=== PATIENT | female | born 2000 | race Caucasian/White ===

== ENCOUNTER 2024-08-19 13:35 | Emergency (ER) | payer BC, SELFPAY ==
[2024-08-19 13:39] VITALS: BP 160/110
[2024-08-19 14:02] LABS: % Basophils 0.9 % (0-2); % Eosinophils 0.7 % (0-6); % Immature Granulocytes 2.6 % (0-0.5); % Lymphocytes 28.5 % (20.5-51.1); % Monocytes 13.3 % (1.7-9.3); Absolute Basophils 0.1 10^3/uL (0-0.2); Absolute Eosinophils 0.1 10^3/uL (0-0.7); Absolute Immature Granulocytes 0.2 10^3/uL (0-0.05); Absolute Lymphocytes 2.6 10^3/uL (1.2-3.4); Absolute Monocytes 1.2 10^3/uL (0.1-0.6); Absolute Neutrophils 4.9 10^3/uL (1.4-6.5); Hematocrit 45.6 % (37.0-47.0); Hemoglobin 15.7 g/dL (12.0-16.0); Mean Corp Hgb Conc. 34.4 g/dL (33.0-37.0); Mean Corpuscular Hgb 28.2 pg (27.0-31.0); Mean Platelet Volume 8.4 fL (7.4-10.4); Nucleated Red Blood Cells % 0 %; Platelet Count 282 10^3/uL (130-400); Red Blood Cell Count 5.56 10^6/uL (4.20-5.40); Red Cell Dist. Width 12.7 % (11.5-14.5); White Blood Cell Count 9.1 10^3/uL (4.8-10.8)
[2024-08-19 14:17] LABS: ALT (SGPT) 65 U/L (0-35); AST (SGOT) 66 U/L (14-36); Albumin 4.7 g/dl (3.5-5.0); Alkaline Phosphatase 42 U/L (38-126); Blood Urea Nitrogen 12 mg/dl (7-17); Calcium 9.6 mg/dl (8.4-10.2); Carbon Dioxide 30 mmol/L (22-30); Chloride 98 mmol/L (98-107); Glucose 123 mg/dl (70-99); HCG, Serum Qualitative Screen Negative; Potassium 4.6 mmol/L (3.5-5.1); Sodium 141 mmol/L (135-145); Total Bilirubin 0.9 mg/dl (0.2-1.3); Total Protein 7.6 g/dl (6.3-8.2); eGFR > 60.00
[2024-08-19 16:01] VITALS: BP 138/96
[2024-08-19 16:03] VITALS: BMI 21.8
--- NOTE | 2024-08-19 16:05 | ED.GENMED ---
History of Present Illness
<Day Cabral PA-C - Last Filed: 08/19/24 18:45>
General
Chief Complaint: Heart Rate Problem
Source: patient
Exam Limitations: none
Time Seen by Provider: 08/19/24 15:53
Nursing documentation reviewed up to this point in time: agreed with
History of Present Illness
History of Present Illness:
23-year-old female presents emergency department today with concerns of fast heart rate. Patient states that this has been going on for the past few hours. Patient reports that she has been having sinus pressure, congestion, as well as a frontal
headache on and off for the past 2 weeks. Patient reports that she was started on a 10-day course of prednisone, she is also had Sudafed and [id number] cough and cold medicine. She reports that she feels like her symptoms were not improving
and so [facility] and they noted her heart rate to be in the 120s and so they sent her to the emergency department for further evaluation. Patient states that she can feel her heart racing at times but denies
palpitations, denies any chest pain or shortness of breath. Patient denies any sore throat, any trouble swallowing. Patient denies any ear pain, dizziness, lightheadedness, syncopal episodes. Patient denies any fatigue, nausea, vomiting,
abdominal pain, fevers or chills. Patient has no chronic medical conditions.
Review of Systems
<Day Cabral PA-C - Last Filed: 08/19/24 18:45>
Review of Systems
All Other Systems: ROS reviewed and negative except as documented in HPI and ROS
Phy Exam
<Day Cabral PA-C - Last Filed: 08/19/24 18:45>
Physical Exam
Physical Exam:
General: Patient is well appearing and in no acute distress; non-toxic
Skin: Warm and dry, no rashes or lesions
Head: Normocephalic, atraumatic
Eyes: Sclera non-icteric. EOMs intact. PERRLA.
Mouth: No intraoral lesions, no pharyngeal erythema, no tonsillar exudates
Cardiac: Regular rate and rhythm, no murmurs
Peripheral Vascular: No lower extremity swelling or edema
Pulm: Normal respiratory effort, no wheezes, rales, rhonchi
Abdomen: No abdominal tenderness to palpation, no organomegaly
Neuro: CN II-XII intact, no focal neurologic deficits.
Psychiatric: Appropriate mood and affect.
Course
<Day Cabral PA-C - Last Filed: 08/19/24 18:45>
Orders/Labs/Results
Orders:
Orders
08/19/24 13:42
Electrocardiogram (*1) Urgent
Reason for Study: Bradycardia / Tachycardia
08/19/24 13:43
EKG- Treatment ONCE
Test Result ONCE
08/19/24 13:51
Complete Blood Count/With Diff Urgent
Comprehensive Metabolic Panel Urgent
HCG, Serum Qualitative Screen Urgent
Monotest Urgent
Comment: ADD ON
08/19/24 16:47
Add On- LAB Urgent
Tests Added?: mono
0.9% Sodium Chloride 500 ml [Nss] 500 ml IV BOLUS
Abnormal Lab Results
08/19/24
13:51
RBC 5.56 H 10^6/uL
(4.20-5.40)
Abs Immat Gran (auto) 0.2 H 10^3/uL
(0-0.05)
Absolute Monos (auto) 1.2 H 10^3/uL
(0.1-0.6)
Immature Gran % 2.6 H %
(0-0.5)
Monocytes % 13.3 H %
(1.7-9.3)
Glucose 123 H mg/dl
(70-99)
AST 66 H U/L
(14-36)
ALT 65 H U/L
(0-35)
08/19/24 13:51
08/19/24 13:51
Vital Signs
Initial and Last Documented VS:
Initial Vital Signs
Temp Pulse Resp BP Pulse Ox
98.2 F 128 18 160/110 99
08/19/24 13:39 08/19/24 13:39 08/19/24 13:39 08/19/24 13:39 08/19/24 13:39
Last Documented Vital Signs
Temp Pulse Resp BP Pulse Ox
98.2 F 107 14 143/102 97
08/19/24 13:39 08/19/24 17:15 08/19/24 17:15 08/19/24 17:00 08/19/24 17:15
<Bonifacio Sethi, DO - Last Filed: 08/19/24 17:14>
Orders/Labs/Results
Orders:
Orders
08/19/24 13:42
Electrocardiogram (*1) Urgent
Reason for Study: Bradycardia / Tachycardia
08/19/24 13:43
EKG- Treatment ONCE
Test Result ONCE
08/19/24 13:51
Complete Blood Count/With Diff Urgent
Comprehensive Metabolic Panel Urgent
HCG, Serum Qualitative Screen Urgent
Monotest Urgent
Comment: ADD ON
08/19/24 16:47
Add On- LAB Urgent
Tests Added?: mono
0.9% Sodium Chloride 500 ml [Nss] 500 ml IV BOLUS
Abnormal Lab Results
08/19/24
13:51
RBC 5.56 H 10^6/uL
(4.20-5.40)
Abs Immat Gran (auto) 0.2 H 10^3/uL
(0-0.05)
Absolute Monos (auto) 1.2 H 10^3/uL
(0.1-0.6)
Immature Gran % 2.6 H %
(0-0.5)
Monocytes % 13.3 H %
(1.7-9.3)
Glucose 123 H mg/dl
(70-99)
AST 66 H U/L
(14-36)
ALT 65 H U/L
(0-35)
08/19/24 13:51
08/19/24 13:51
Vital Signs
Initial and Last Documented VS:
Initial Vital Signs
Temp Pulse Resp BP Pulse Ox
98.2 F 128 18 160/110 99
08/19/24 13:39 08/19/24 13:39 08/19/24 13:39 08/19/24 13:39 08/19/24 13:39
Last Documented Vital Signs
Temp Pulse Resp BP Pulse Ox
98.2 F 107 14 143/102 97
08/19/24 13:39 08/19/24 17:15 08/19/24 17:15 08/19/24 17:00 08/19/24 17:15
Gillt;Day Cabral PA-C - Last Filed: 08/19/24 18:45>
MDM/Problems Addressed
Differential Diagnosis Includes:
Differentials include sinus tachycardia, PACs, medication reaction, sinus infection,
MDM/Problems Addressed:
23-year-old female presents emergency department today with concerns of high heart rate. She has generalized sinus symptoms as well as headaches. She has been taking prednisone and Sudafed and recently stopped prednisone. She was going to urgent
care today because her symptoms have failed to improve, however they sent her here for further evaluation. On exam she is well-appearing, no acute distress, does not have any murmurs or fast heart rate on my exam however she was noted on the
monitor to occasionally be tachycardic in the 110s to 120s however she seemed to be in the 90s the majority of the time. I did offer IV fluids and pain control to see how this would help patient's heart rate and her symptoms. Patient is declining
this at this time. I suspect she has had a high heart rate because she has been on prednisone and Sudafed, as well as she has been in pain. Considering patient has no chest pain, her EKG shows no ischemic changes, patient stable for discharge.
Considering patient symptoms have been going on for so long, we will consider Z-Donavan to patient's pharmacy. Patient will follow-up with her primary care provider. Did discuss elevation in LFTs, discuss having these values repeated. Monotest
negative. Patient stable for discharge.
Chronic conditions affecting care:
N/A
Acute Exacerbation and/or Progression of Chronic Illness:
N/A
<Day Cabral PA-C - Last Filed: 08/19/24 18:45>
*Pulse Oximetry
Patient hypoxic: no
*EKG
Interpreted by ED Provider?: Yes
EKG Intrepretation Date: 08/19/24
Interpretation: normal
Comparison EKG: no comparison EKG present
Heart Rate: 112
Rate: tachycardiac
Rhythm: sinus
[place]: normal axis
Interval: normal interval
QRS Pattern: normal QRS
Ischemia: no ischemia
*Managing Principal Interpretation
Rate: normal
Interpretation: normal
Heart Rate: 96
Rhythm: sinus
*Critical Care Note
Total Time (30-74mins, 75-104mins- exclusive of procedures): Not Applicable
Data Reviewed
Review of Other/Old Records Reveals: Records (No previous ER physician documentation to review) and Discharge Summary ([facility])
Source: patient and records
Further Testing Considered But Not Given:
n/a
ED Attending Note
<Day Cabral PA-C - Last Filed: 08/19/24 18:45>
-
Portions of this chart may have been created with voice recognition software.� Occasional wrong word or��sound alike� substitutions may have occurred due to the inherent limitations of voice recognition software.
<Bonifacio Oquendo Navdeep, DO - Last Filed: 08/19/24 17:14>
ED Attending Note
Patient seen and examined by attending physician: Yes
I performed the substantive portion of visit, reviewed & personally made and approve the management plan that is documented in note by myself or ROCKY.: Yes
I performed a history and physical exam of patient and discussed management with resident, I reviewed resident's note and agree with documented findings and plan of care.: Yes
ED Attending Note:
I evaluated patient at bedside. I was I walked in the room the patient had a heart rate of 100 and as I was in the room her heart rate went up to 120. She describes a 'vibration' sensation in the head. She has some 'sinus pressure and feels that
she has 'a sinus infection'. Since she has had symptoms for 2 weeks we talked about trying antibiotics. She does not think that she tolerates Augmentin�will try short course of azithromycin.
Discharge Plan
Departure
Patient Disposition: Home (Routine Discharge)
Date of Disposition: 08/19/24
Time of Disposition: 17:07
Patient with high blood pressure during this ER visit?: Yes
Condition: Good
Discharge Problem:
Regular sinus tachycardia, Sinusitis
Instructions: Sinusitis in adults, Tachycardia, BLOOD PRESSURE
Prescriptions:
New
azithromycin [Zithromax Z-Donavan] 250 mg tablet
250 mg PO DAILY Qty: 6 0RF
No Action
multivitamin 1 EACH tablet
1 ea PO DAILY
loratadine 10 MG tablet
10 mg PO PRN PRN (Reason: allergies)
norethindrone-e.estradiol-iron [Lo Loestrin Fe] 1 EACH tablet
1 ea PO DAILY
Referrals:
Juan C Gustafson MD [Active] - Call in 1-3 days for appt
Tobias Lagos, DO [Family Provider] -
Activity Restrictions/Additional Instructions:
Please follow-up with your primary care provider in 1 week to reassess your symptoms.
You may need Holter monitoring assessment should you experience palpitations or persistently higher heart rate. You can call the attached number to schedule appointment to see a robot technician.
Please return emergency department should you experience chest pain, shortness of breath, dizziness, lightheadedness, syncopal episodes, or any other signs or symptoms concerning to you.
Interventions
Interventions:
*Risk Screen - Suicide Last Done: 08/19/24 13:39
*General Assessment Last Done: 08/19/24 17:30
*Neglect/Abuse Screening Last Done: 08/19/24 13:39
ED- Fall Risk Assessment Last Done: 08/19/24 16:12
*ED COVID-19 Vaccine History Last Done: 08/19/24 17:30
*Nursing Disposition Last Done: 08/19/24 17:30
ED- Cardiac Assessment Last Done: 08/19/24 16:12
ED- Pulmonary Assessment Last Done: 08/19/24 16:12
Discharge Date and Time
Discharge Date/Time: 08/19/24 17:31
Print Language: WELSH
[2024-08-19 17:00] VITALS: BP 143/102
[2024-08-19 17:37] LABS: Monotest Negative (Negative)
== END 2024-08-19 17:31 | disposition home or self-care (01) ==
LOC: EMR 13:35
PROVIDERS: EMERGENCY PHYSICIAN Emergency Medicine; FAMILY PHYSICIAN Family Medicine
DX: J32.9 Chronic sinusitis, unspecified (principal); R00.0 Tachycardia, unspecified; R03.0 Elevated blood-pressure reading, without diagnosis of hypertension
CPT/HCPCS: 99284; 80053; 84703; 85025; 86308; 93005